=== PATIENT | female | born 1970 | race Caucasian/White ===

== ENCOUNTER 2024-11-20 08:15 | Outpatient (CLI) | payer BC, SELFPAY ==
[2024-11-22 08:26] LABS: HPV Source Cervix; HPV, High Risk by TMA Not Detected
== END 2024-11-20 08:16 | disposition home or self-care (01) ==
PROVIDERS: PCP Nurse Practitioner Family; Visit Provider Nurse Practitioner Family
DX: Z12.4 Encounter for screening for malignant neoplasm of cervix (principal); Z11.51 Encounter for screening for human papillomavirus (HPV); Z13.220 Encounter for screening for lipoid disorders; Z13.1 Encounter for screening for diabetes mellitus
CPT/HCPCS: 80061; 82947; 87624; 87625; 88141; 88142